=== PATIENT | female | born 1975 | race Hispanic/Latino ===

== ENCOUNTER 2017-03-09 01:40 | Emergency (ER) | payer MEDICAID, SELFPAY ==
[2017-03-09] MEDS ORDERED: diphenhydrAMINE 50 MG/ML VIAL ONE (01:59)
[2017-03-09] MEDS ORDERED: Dexamethasone 4 mg/ml Vial ONE (01:59)
[2017-03-09] MEDS ORDERED: EPINEPHrine 1 mg/ml MDV (1ml Charge) ONE (01:59)
== END 2017-03-09 03:14 | disposition home or self-care (01) ==
LOC: ERS 01:40
DX: R51 Headache (principal); R07.9 Chest pain, unspecified; T48.1X5A Adverse effect of skeletal muscle relaxants [neuromuscular blocking agents], initial encounter; Z79.899 Other long term (current) drug therapy
CPT/HCPCS: 93005; J0171; J1100; J1200

== ENCOUNTER 2018-10-26 08:25 | Outpatient (CLI) | payer OTHER ==
--- NOTE | 2018-10-26 09:06 | RAD ---
TWO VIEWS ABDOMEN: Supine upright views obtained. HISTORY: Abdominal pain. FINDINGS: Scattered stool and gas noted throughout the colon. Small bowel gas pattern is unremarkable. No herlinda e air, soft tissue mass, or abnormal calcification identified. IMPRESSION: Scattered stool throughout the colon. Bowel gas pattern unremarkable. POS: [facility]
== END 2018-10-26 08:26 | disposition home or self-care (01) ==
LOC: BICRAD 08:25
PROVIDERS: ATTEND Family Medicine
DX: R10.9 Unspecified abdominal pain (principal)
CPT/HCPCS: 74019